=== PATIENT | male | born 1985 | race Two or more races ===

== ENCOUNTER 2020-10-25 16:48 | Inpatient (IN) | payer OTHER ==
[~2020-10-25] VITALS: Ht 167.6 cm; Wt 85.1 kg
[2020-10-25] VITALS (7 sets, daily range): BP systolic 144–154; BP diastolic 82–101
--- NOTE | 2020-10-25 17:00 | NUR ---
sandie for intermitient nose bleed x6 days. was seen at [facility] for same 2 days ago. no nose bleed observed currently. pt postioned in chair to comfort. attached to monitors. vss. barrios.
[2020-10-25] MEDS ORDERED: SILVER NITRATE STICK TP ONE (17:35)
--- NOTE | 2020-10-25 18:19 | NUR ---
REPORT FROM TRUNG DEL VALLE
--- NOTE | 2020-10-25 18:32 | NUR ---
task RN: pt moved from room 20 to room 17. pt on charlie. bus monitor in place. IV started x2 and labs drawn. pt positioning for comfort. pt declines warm blankets at this time
[2020-10-25 18:44] LABS: BASOPHILS % (AUTO) 1 % (0-1); EOSINOPHILS % (AUTO) 1 % (1-7); LYMPHOCYTES % (AUTO) 12 % (22-44); MEAN CORPUSCULAR HGB CONC 35.2 g/dL (33.2-36.2); MEAN PLATELET VOLUME 7.3 fL (7.4-10.4); MONOCYTES % (AUTO) 6 % (2-9); NEUTROPHILS % (AUTO) 81 % (42-75); PLATELET COUNT 327 x10^3/uL (130-400); RED BLOOD COUNT 1.34 x10^6/uL (4.38-5.82)
--- NOTE | 2020-10-25 18:45 | NUR ---
Received report from IVON Alarcon
[2020-10-25 19:05] LABS: INTERNATIONAL NORMALIZED RATIO 1.02 (0.93-1.1); PROTHROMBIN TIME 10.9 Seconds (9.6-11.5)
[2020-10-25 19:27] LABS: <PLATELET ESTIMATE> ADEQUATE; <PLT MORPHOLOGY> NORMAL PLT MORPH; ANISOCYTOSIS 1+; POLYCHROMASIA 1+
[2020-10-25 19:37] LABS: ALANINE AMINOTRANSFERASE 13 U/L (12-78); ALBUMIN 2.5 g/dL (3.4-5.0); ANION GAP 15 mmol/L (5-15); CALCIUM 8.2 mg/dL (8.5-10.1); CHLORIDE 103 mmol/L (98-107)
[2020-10-25 19:39] LABS: ALKALINE PHOSPHATASE 33 U/L (45-117); BILIRUBIN,TOTAL 0.2 mg/dL (0.2-1.0); TOTAL PROTEIN 6.1 g/dL (6.4-8.2)
--- NOTE | 2020-10-25 19:58 | NUR ---
pt started on blood
[2020-10-25 20:54] LABS: MICROSCOPIC INDICATED
--- NOTE | 2020-10-25 21:42 | NUR ---
Pt to be admitted to [facility], room 490-2. Report called to IVON Madera.
--- NOTE | 2020-10-25 21:42 | NUR ---
2nd unit of blood started, hospitalist at bedside
[2020-10-25] MEDS ORDERED: ASPI1TAB31 PO (23:10)
[2020-10-26] VITALS (7 sets, daily range): BP systolic 141–163; BP diastolic 85–113
[2020-10-26] MEDS ORDERED: BISACODYL 10 MG SUPP PR PRN (02:00)
[2020-10-26 09:27] LABS: BASOPHILS % (AUTO) 1 % (0-1); EOSINOPHILS % (AUTO) 2 % (1-7); LYMPHOCYTES % (AUTO) 20 % (22-44); MEAN CORPUSCULAR HEMOGLOBIN 30.1 pg (27.5-34.5); MEAN CORPUSCULAR HGB CONC 35.6 g/dL (33.2-36.2); MEAN PLATELET VOLUME 6.8 fL (7.4-10.4); MONOCYTES % (AUTO) 9 % (2-9); NEUTROPHILS % (AUTO) 69 % (42-75); PLATELET COUNT 240 x10^3/uL (130-400); RED BLOOD COUNT 2.76 x10^6/uL (4.38-5.82); RED CELL DISTRIBUTION WIDTH 14.4 % (9.4-14.8)
[2020-10-26 09:41] LABS: ALBUMIN 2.3 g/dL (3.4-5.0); ANION GAP 15 mmol/L (5-15); CALCIUM 7.8 mg/dL (8.5-10.1); CHLORIDE 107 mmol/L (98-107)
[2020-10-26 09:42] LABS: CREATININE 9.99 mg/dL (0.7-1.3)
[2020-10-26] MEDS: LACTATED RINGERS 1,000 ML IV SCH ×2 (12:45→19:50)
[2020-10-26] MEDS: POTASSIUM CHLORIDE 20 MEQ PACKET PO SCH ×2 (15:11→21:53)
[2020-10-26] MEDS ORDERED: POTASSIUM CHLORIDE 20 MEQ PACKET PO SCH (17:00)
[2020-10-27] VITALS (10 sets, daily range): BP systolic 143–169; BP diastolic 85–120
[2020-10-27 01:52] LABS: INTERNATIONAL NORMALIZED RATIO 0.97 (0.93-1.1); PROTHROMBIN TIME 10.4 Seconds (9.6-11.5)
[2020-10-27] MEDS: LACTATED RINGERS 1,000 ML IV SCH ×3 (06:15→22:51)
[2020-10-27] MEDS: POTASSIUM CHLORIDE 20 MEQ PACKET PO SCH ×2 (08:51→17:17)
[2020-10-27 09:25] LABS: BASOPHILS % (AUTO) 1 % (0-1); EOSINOPHILS % (AUTO) 4 % (1-7); LYMPHOCYTES % (AUTO) 23 % (22-44); MEAN CORPUSCULAR HEMOGLOBIN 30.5 pg (27.5-34.5); MEAN CORPUSCULAR HGB CONC 35.7 g/dL (33.2-36.2); MONOCYTES % (AUTO) 9 % (2-9); NEUTROPHILS % (AUTO) 64 % (42-75); PLATELET COUNT 219 x10^3/uL (130-400); RED BLOOD COUNT 2.69 x10^6/uL (4.38-5.82); RED CELL DISTRIBUTION WIDTH 14.7 % (9.4-14.8)
[2020-10-27 09:32] LABS: ANION GAP 9 mmol/L (5-15); CALCIUM 7.6 mg/dL (8.5-10.1); CHLORIDE 109 mmol/L (98-107); INTERNATIONAL NORMALIZED RATIO 0.98 (0.93-1.1); PROTHROMBIN TIME 10.5 Seconds (9.6-11.5)
[2020-10-27 09:35] LABS: CREATININE 8.15 mg/dL (0.7-1.3)
[2020-10-27] MEDS ORDERED: AMLODIPINE 2.5 MG TABLET ONE (12:24)
[2020-10-27] MEDS: AMLODIPINE 2.5 MG TABLET PO SCH (12:27)
[2020-10-27] MEDS: hydrALAzine 20 MG/ML, 1ML IV PRN (21:11)
[2020-10-28] VITALS (7 sets, daily range): BP systolic 147–168; BP diastolic 90–118
[2020-10-28 06:26] LABS: BASOPHILS % (AUTO) 1 % (0-1); EOSINOPHILS % (AUTO) 3 % (1-7); LYMPHOCYTES % (AUTO) 22 % (22-44); MEAN CORPUSCULAR HEMOGLOBIN 30.6 pg (27.5-34.5); MEAN CORPUSCULAR HGB CONC 35.3 g/dL (33.2-36.2); MEAN PLATELET VOLUME 7.2 fL (7.4-10.4); MONOCYTES % (AUTO) 9 % (2-9); NEUTROPHILS % (AUTO) 66 % (42-75); PLATELET COUNT 229 x10^3/uL (130-400); RED BLOOD COUNT 2.82 x10^6/uL (4.38-5.82); RED CELL DISTRIBUTION WIDTH 14.5 % (9.4-14.8)
[2020-10-28] MEDS: ACETAMINOPHEN 325 MG TABLET PO PRN ×2 (06:27→17:07)
[2020-10-28 06:37] LABS: ANION GAP 9 mmol/L (5-15); CHLORIDE 109 mmol/L (98-107)
[2020-10-28 06:39] LABS: CREATININE 7.26 mg/dL (0.7-1.3)
[2020-10-28] MEDS: hydrALAzine 20 MG/ML, 1ML IV PRN ×2 (06:56→14:37)
[2020-10-28] MEDS: AMLODIPINE 2.5 MG TABLET PO SCH ×2 (07:51→17:51)
[2020-10-28] MEDS: POTASSIUM CHLORIDE 20 MEQ PACKET PO SCH ×2 (07:51→17:07)
[2020-10-28] MEDS: LACTATED RINGERS 1,000 ML IV SCH (07:51)
[2020-10-28] MEDS: CHOLECALCIFEROL 5,000u TAB PO SCH (09:42)
[2020-10-28] MEDS: MULTIVITS,STRESS FORMULA 1 TABLET PO SCH (09:42)
[2020-10-28] MEDS: ZINC SULFATE 220 MG CAPSULE PO SCH (09:42)
[2020-10-28] MEDS: IRON SUCROSE COMPLEX 100MG/5ML IV SCH (17:07)
[2020-10-28] MEDS: ASCORBIC ACID 500 MG TABLET PO SCH (17:07)
[2020-10-28] MEDS ORDERED: AMLODIPINE 2.5 MG TABLET ONE (17:49)
[2020-10-28 18:21] LABS: MICROSCOPIC AUTO
[2020-10-29 01:44] VITALS: BP 153/95
[2020-10-29 06:06] LABS: BASOPHILS % (AUTO) 1 % (0-1); EOSINOPHILS % (AUTO) 3 % (1-7); LYMPHOCYTES % (AUTO) 26 % (22-44); MEAN CORPUSCULAR HEMOGLOBIN 30.7 pg (27.5-34.5); MEAN CORPUSCULAR HGB CONC 34.8 g/dL (33.2-36.2); MEAN PLATELET VOLUME 7.1 fL (7.4-10.4); MONOCYTES % (AUTO) 8 % (2-9); NEUTROPHILS % (AUTO) 62 % (42-75); PLATELET COUNT 249 x10^3/uL (130-400); RED CELL DISTRIBUTION WIDTH 14.4 % (9.4-14.8)
[2020-10-29 06:12] LABS: ALBUMIN 2.6 g/dL (3.4-5.0); ANION GAP 9 mmol/L (5-15); CALCIUM 8.3 mg/dL (8.5-10.1); CHLORIDE 108 mmol/L (98-107)
[2020-10-29 06:13] LABS: CREATININE 7.08 mg/dL (0.7-1.3)
[2020-10-29 08:45] VITALS: BP 164/109
[2020-10-29] MEDS: AMLODIPINE 2.5 MG TABLET PO SCH (08:47)
[2020-10-29] MEDS: ASCORBIC ACID 500 MG TABLET PO SCH ×2 (08:47→17:01)
[2020-10-29] MEDS: CHOLECALCIFEROL 5,000u TAB PO SCH (08:47)
[2020-10-29] MEDS: MULTIVITS,STRESS FORMULA 1 TABLET PO SCH (08:47)
[2020-10-29] MEDS: POTASSIUM CHLORIDE 20 MEQ PACKET PO SCH ×2 (08:48→17:01)
[2020-10-29] MEDS: IRON SUCROSE COMPLEX 100MG/5ML IV SCH (08:48)
[2020-10-29] MEDS: ZINC SULFATE 220 MG CAPSULE PO SCH (08:48)
[2020-10-29] MEDS ORDERED: AMLODIPINE 10 MG TAB PO SCH (09:00)
[2020-10-29] MEDS ORDERED: AMLODIPINE 5 MG TABLET PO ONE (09:30)
[2020-10-29 11:25] VITALS: BP 151/102
[2020-10-29] MEDS ORDERED: LACTATED RINGERS 1,000 ML IV SCH (12:30)
[2020-10-29] MEDS: ACETAMINOPHEN 325 MG TABLET PO PRN (14:16)
[2020-10-29 14:55] VITALS: BP 159/99
[2020-10-29 18:45] VITALS: BP 155/99
[2020-10-30] VITALS (7 sets, daily range): BP systolic 137–151; BP diastolic 87–94
[2020-10-30] MEDS: ZINC SULFATE 220 MG CAPSULE PO SCH (07:36)
[2020-10-30] MEDS: IRON SUCROSE COMPLEX 100MG/5ML IV SCH (07:36)
[2020-10-30] MEDS: CHOLECALCIFEROL 5,000u TAB PO SCH (07:37)
[2020-10-30] MEDS: ASCORBIC ACID 500 MG TABLET PO SCH ×2 (07:37→17:26)
[2020-10-30] MEDS: AMLODIPINE 5 MG TABLET PO SCH (07:37)
[2020-10-30] MEDS: MULTIVITS,STRESS FORMULA 1 TABLET PO SCH (07:37)
[2020-10-30] MEDS: POTASSIUM CHLORIDE 20 MEQ PACKET PO SCH ×2 (07:38→17:26)
[2020-10-30] MEDS ORDERED: AMLODIPINE 10 MG TAB PO SCH (09:00)
[2020-10-30] MEDS ORDERED: LABETALOL 5MG/ML, 20ML ONE (10:14)
[2020-10-30] MEDS ORDERED: LABETALOL 5MG/ML, 20ML IVPush ONE ×2 (10:30→15:00)
[2020-10-30] MEDS ORDERED: NALOXONE 1 MG/ML, 2ML ONE (10:35)
[2020-10-30] MEDS ORDERED: FLUMAZENIL 0.1 MG/1 ML, 5ML ONE (10:35)
[2020-10-30] MEDS ORDERED: MIDAZOLAM 1 MG/ML, 5ML ONE (10:35)
[2020-10-30] MEDS ORDERED: FENTANYL PF 100 MCG/2ML ONE (10:35)
[2020-10-30] MEDS ORDERED: CARVEDILOL 3.125 MG TABLET ONE (11:44)
[2020-10-30] MEDS ORDERED: CARVEDILOL 3.125 MG TABLET PO SCH (12:00)
[2020-10-30 12:52] LABS: BASOPHILS % (AUTO) 1 % (0-1); EOSINOPHILS % (AUTO) 3 % (1-7); LYMPHOCYTES % (AUTO) 16 % (22-44); MEAN CORPUSCULAR HEMOGLOBIN 30.9 pg (27.5-34.5); MEAN CORPUSCULAR HGB CONC 34.9 g/dL (33.2-36.2); MEAN PLATELET VOLUME 6.5 fL (7.4-10.4); MONOCYTES % (AUTO) 8 % (2-9); NEUTROPHILS % (AUTO) 72 % (42-75); PLATELET COUNT 226 x10^3/uL (130-400); RED BLOOD COUNT 2.81 x10^6/uL (4.38-5.82); RED CELL DISTRIBUTION WIDTH 14.7 % (9.4-14.8)
[2020-10-30 13:00] LABS: ALBUMIN 2.5 g/dL (3.4-5.0); ANION GAP 9 mmol/L (5-15); CALCIUM 7.8 mg/dL (8.5-10.1); CHLORIDE 106 mmol/L (98-107); CREATININE 6.82 mg/dL (0.7-1.3)
[2020-10-30] MEDS ORDERED: LABETALOL 5MG/ML, 20ML IVPush PRN (15:00)
[2020-10-30] MEDS: CARVEDILOL 6.25 MG TABLET PO SCH (17:26)
[2020-10-31 05:43] VITALS: BP 126/83
[2020-10-31] MEDS: CARVEDILOL 6.25 MG TABLET PO SCH ×2 (05:51→16:32)
[2020-10-31 06:37] LABS: ALBUMIN 2.5 g/dL (3.4-5.0); ANION GAP 10 mmol/L (5-15); CALCIUM 7.7 mg/dL (8.5-10.1); CHLORIDE 105 mmol/L (98-107)
[2020-10-31 07:11] VITALS: BP 131/85
[2020-10-31] MEDS: MULTIVITS,STRESS FORMULA 1 TABLET PO SCH (08:03)
[2020-10-31] MEDS: CHOLECALCIFEROL 5,000u TAB PO SCH (08:03)
[2020-10-31] MEDS: ASCORBIC ACID 500 MG TABLET PO SCH ×2 (08:03→16:32)
[2020-10-31] MEDS: AMLODIPINE 5 MG TABLET PO SCH (08:03)
[2020-10-31] MEDS: ZINC SULFATE 220 MG CAPSULE PO SCH (08:04)
[2020-10-31] MEDS: IRON SUCROSE COMPLEX 100MG/5ML IV SCH (08:04)
[2020-10-31] MEDS: POTASSIUM CHLORIDE 20 MEQ PACKET PO SCH ×2 (08:04→16:32)
[2020-10-31] MEDS ORDERED: NALOXONE 1 MG/ML, 2ML ONE (13:51)
[2020-10-31] MEDS ORDERED: FLUMAZENIL 0.1 MG/1 ML, 5ML ONE (13:51)
[2020-10-31] MEDS ORDERED: MIDAZOLAM 1 MG/ML, 5ML ONE (13:51)
[2020-10-31] MEDS ORDERED: FENTANYL PF 100 MCG/2ML ONE (13:51)
[2020-10-31] MEDS ORDERED: LIDOCAINE 1%, 20ML ONE (13:52)
[2020-10-31 13:54] VITALS: BP 136/86
[2020-10-31] MEDS ORDERED: LIDOCAINE 1%, 10ML ONE (13:54)
[2020-10-31 16:23] VITALS: BP 122/66
[2020-10-31 20:00] VITALS: BP 124/79
[2020-11-01 01:27] VITALS: BP 104/68
[2020-11-01] MEDS: CARVEDILOL 6.25 MG TABLET PO SCH ×2 (06:12→18:07)
[2020-11-01 07:28] VITALS: BP 116/72
[2020-11-01] MEDS: POTASSIUM CHLORIDE 20 MEQ PACKET PO SCH ×2 (09:01→16:37)
[2020-11-01] MEDS: CHOLECALCIFEROL 5,000u TAB PO SCH (09:02)
[2020-11-01] MEDS: AMLODIPINE 5 MG TABLET PO SCH (09:02)
[2020-11-01] MEDS: MULTIVITS,STRESS FORMULA 1 TABLET PO SCH (09:02)
[2020-11-01] MEDS: IRON SUCROSE COMPLEX 100MG/5ML IV SCH (09:02)
[2020-11-01] MEDS: ZINC SULFATE 220 MG CAPSULE PO SCH (09:02)
[2020-11-01] MEDS: ASCORBIC ACID 500 MG TABLET PO SCH ×2 (09:02→16:36)
[2020-11-01 09:23] LABS: BASOPHILS % (AUTO) 1 % (0-1); EOSINOPHILS % (AUTO) 3 % (1-7); LYMPHOCYTES % (AUTO) 15 % (22-44); MEAN CORPUSCULAR HEMOGLOBIN 30.8 pg (27.5-34.5); MEAN CORPUSCULAR HGB CONC 34.2 g/dL (33.2-36.2); MONOCYTES % (AUTO) 7 % (2-9); NEUTROPHILS % (AUTO) 74 % (42-75); PLATELET COUNT 266 x10^3/uL (130-400); RED BLOOD COUNT 2.81 x10^6/uL (4.38-5.82); RED CELL DISTRIBUTION WIDTH 14.6 % (9.4-14.8)
[2020-11-01 09:28] LABS: ALBUMIN 2.9 g/dL (3.4-5.0); ANION GAP 12 mmol/L (5-15); CALCIUM 8.2 mg/dL (8.5-10.1); CHLORIDE 105 mmol/L (98-107)
[2020-11-01 09:29] LABS: CREATININE 7.47 mg/dL (0.7-1.3)
[2020-11-01] MEDS ORDERED: AMLO-150 PO ×2 (12:00)
[2020-11-01] MEDS ORDERED: CARV6.2512 PO ×2 (12:00)
[2020-11-01 13:41] VITALS: BP 116/76
[2020-11-01 20:15] VITALS: BP 120/79
[2020-11-02 02:00] VITALS: BP 124/81
[2020-11-02 05:17] LABS: CHLORIDE 105 mmol/L (98-107)
[2020-11-02 05:23] LABS: ALBUMIN 2.3 g/dL (3.4-5.0); ANION GAP 11 mmol/L (5-15); CALCIUM 7.9 mg/dL (8.5-10.1); CREATININE 7.21 mg/dL (0.7-1.3)
[2020-11-02] MEDS: CARVEDILOL 6.25 MG TABLET PO SCH ×2 (06:33→17:32)
[2020-11-02 09:25] VITALS: BP 117/72
[2020-11-02] MEDS: AMLODIPINE 5 MG TABLET PO SCH (09:27)
[2020-11-02] MEDS: ZINC SULFATE 220 MG CAPSULE PO SCH (09:27)
[2020-11-02] MEDS: MULTIVITS,STRESS FORMULA 1 TABLET PO SCH (09:28)
[2020-11-02] MEDS: POTASSIUM CHLORIDE 20 MEQ PACKET PO SCH (09:28)
[2020-11-02] MEDS: CHOLECALCIFEROL 5,000u TAB PO SCH (09:28)
[2020-11-02] MEDS: IRON SUCROSE COMPLEX 100MG/5ML IV SCH (09:28)
[2020-11-02] MEDS: ASCORBIC ACID 500 MG TABLET PO SCH ×2 (09:28→16:13)
[2020-11-02] MEDS ORDERED: DARBEPOETIN 100 MCG/ML SQ SCH (13:00)
[2020-11-02 15:34] VITALS: BP 134/87
[2020-11-02 19:34] VITALS: BP 132/83
[2020-11-02] MEDS: LOSARTAN 50MG TABLET PO SCH (20:47)
[2020-11-03 00:34] VITALS: BP 135/85
[2020-11-03] MEDS: CARVEDILOL 6.25 MG TABLET PO SCH ×2 (06:27→17:37)
[2020-11-03 08:00] VITALS: BP 122/74
[2020-11-03] MEDS ORDERED: FENTANYL PF 100 MCG/2ML ONE (08:00)
[2020-11-03] MEDS ORDERED: MIDAZOLAM 1 MG/ML, 5ML ONE (08:00)
[2020-11-03] MEDS ORDERED: NALOXONE 1 MG/ML, 2ML ONE (08:01)
[2020-11-03] MEDS ORDERED: FLUMAZENIL 0.1 MG/1 ML, 5ML ONE (08:01)
[2020-11-03] MEDS ORDERED: LIDOCAINE 1%, 20ML ONE (08:23)
[2020-11-03] MEDS ORDERED: VANCOMYCIN 1,300 MG in SODIUM CHLORIDE 0.9% 250 ML IVPB ONE (08:28)
[2020-11-03] MEDS: MULTIVITS,STRESS FORMULA 1 TABLET PO SCH (10:06)
[2020-11-03] MEDS: ZINC SULFATE 220 MG CAPSULE PO SCH (10:06)
[2020-11-03] MEDS: AMLODIPINE 5 MG TABLET PO SCH (10:06)
[2020-11-03] MEDS: LOSARTAN 50MG TABLET PO SCH ×2 (10:07→21:18)
[2020-11-03] MEDS: CHOLECALCIFEROL 5,000u TAB PO SCH (10:07)
[2020-11-03] MEDS: ASCORBIC ACID 500 MG TABLET PO SCH ×2 (10:15→17:36)
[2020-11-03 11:00] VITALS: BP 127/84
[2020-11-03 11:34] LABS: BASOPHILS % (AUTO) 1 % (0-1); EOSINOPHILS % (AUTO) 2 % (1-7); LYMPHOCYTES % (AUTO) 17 % (22-44); MEAN CORPUSCULAR HEMOGLOBIN 30.8 pg (27.5-34.5); MEAN CORPUSCULAR HGB CONC 34.4 g/dL (33.2-36.2); MEAN PLATELET VOLUME 7.1 fL (7.4-10.4); MONOCYTES % (AUTO) 10 % (2-9); NEUTROPHILS % (AUTO) 71 % (42-75); PLATELET COUNT 244 x10^3/uL (130-400); RED BLOOD COUNT 2.55 x10^6/uL (4.38-5.82); RED CELL DISTRIBUTION WIDTH 14.6 % (9.4-14.8)
[2020-11-03 11:43] LABS: ALBUMIN 2.6 g/dL (3.4-5.0); ANION GAP 9 mmol/L (5-15); CALCIUM 7.8 mg/dL (8.5-10.1); CHLORIDE 103 mmol/L (98-107)
[2020-11-03 14:55] VITALS: BP 134/85
[2020-11-03 20:31] VITALS: BP 138/86
[2020-11-04 00:53] VITALS: BP 141/81
[2020-11-04 05:41] VITALS: BP 146/85
[2020-11-04] MEDS: CARVEDILOL 6.25 MG TABLET PO SCH ×2 (05:43→17:01)
[2020-11-04 07:46] VITALS: BP 112/68
[2020-11-04] MEDS: ZINC SULFATE 220 MG CAPSULE PO SCH (08:16)
[2020-11-04] MEDS: AMLODIPINE 5 MG TABLET PO SCH (08:16)
[2020-11-04] MEDS: LOSARTAN 50MG TABLET PO SCH ×2 (08:17→21:00)
[2020-11-04] MEDS: MULTIVITS,STRESS FORMULA 1 TABLET PO SCH (08:17)
[2020-11-04] MEDS: ASCORBIC ACID 500 MG TABLET PO SCH ×2 (08:17→17:00)
[2020-11-04] MEDS: CHOLECALCIFEROL 5,000u TAB PO SCH (08:17)
[2020-11-04 08:29] LABS: BASOPHILS % (AUTO) 1 % (0-1); EOSINOPHILS % (AUTO) 2 % (1-7); LYMPHOCYTES % (AUTO) 18 % (22-44); MEAN CORPUSCULAR HEMOGLOBIN 31.1 pg (27.5-34.5); MEAN CORPUSCULAR HGB CONC 34.7 g/dL (33.2-36.2); MEAN PLATELET VOLUME 7.1 fL (7.4-10.4); MONOCYTES % (AUTO) 13 % (2-9); NEUTROPHILS % (AUTO) 66 % (42-75); PLATELET COUNT 251 x10^3/uL (130-400); RED BLOOD COUNT 2.38 x10^6/uL (4.38-5.82); RED CELL DISTRIBUTION WIDTH 14.7 % (9.4-14.8)
[2020-11-04 08:33] LABS: ALBUMIN 2.5 g/dL (3.4-5.0); ANION GAP 10 mmol/L (5-15); CALCIUM 8.2 mg/dL (8.5-10.1); CHLORIDE 104 mmol/L (98-107); CREATININE 6.36 mg/dL (0.7-1.3)
[2020-11-04 08:43] LABS: FREE T4 (FREE THYROXINE) 1.11 ng/dL (0.76-1.46)
[2020-11-04 12:59] VITALS: BP 138/86
[2020-11-04] MEDS: SEVELAMER CARBONATE 800MG TAB PO SCH ×2 (13:30→17:00)
[2020-11-04 22:55] VITALS: BP 120/72
[2020-11-05 04:02] LABS: BASOPHILS % (AUTO) 1 % (0-1); EOSINOPHILS % (AUTO) 2 % (1-7); LYMPHOCYTES % (AUTO) 24 % (22-44); MEAN CORPUSCULAR HEMOGLOBIN 30.5 pg (27.5-34.5); MEAN PLATELET VOLUME 6.9 fL (7.4-10.4); MONOCYTES % (AUTO) 13 % (2-9); NEUTROPHILS % (AUTO) 59 % (42-75); PLATELET COUNT 295 x10^3/uL (130-400); RED BLOOD COUNT 2.76 x10^6/uL (4.38-5.82); RED CELL DISTRIBUTION WIDTH 14.3 % (9.4-14.8)
[2020-11-05 04:15] LABS: ALBUMIN 2.6 g/dL (3.4-5.0); CHLORIDE 98 mmol/L (98-107)
[2020-11-05 04:18] LABS: ANION GAP 9 mmol/L (5-15); CALCIUM 8.7 mg/dL (8.5-10.1); CREATININE 5.15 mg/dL (0.7-1.3)
[2020-11-05] MEDS: CARVEDILOL 6.25 MG TABLET PO SCH ×2 (06:00→17:06)
[2020-11-05 06:07] VITALS: BP 134/78
[2020-11-05 07:13] VITALS: BP 125/80
[2020-11-05] MEDS: CHOLECALCIFEROL 5,000u TAB PO SCH (08:40)
[2020-11-05] MEDS: SEVELAMER CARBONATE 800MG TAB PO SCH ×3 (08:40→17:06)
[2020-11-05] MEDS: MULTIVITS,STRESS FORMULA 1 TABLET PO SCH (08:40)
[2020-11-05] MEDS: ASCORBIC ACID 500 MG TABLET PO SCH ×2 (08:40→17:05)
[2020-11-05] MEDS: ZINC SULFATE 220 MG CAPSULE PO SCH (08:40)
[2020-11-05] MEDS: AMLODIPINE 5 MG TABLET PO SCH (08:40)
[2020-11-05] MEDS: LOSARTAN 50MG TABLET PO SCH ×2 (08:41→21:18)
[2020-11-05 13:03] VITALS: BP 135/85
[2020-11-05 18:28] VITALS: BP_SYST 122; BP_SYST 132; BP_DIAS 84; BP_DIAS 88
[2020-11-05 21:07] VITALS: BP 146/95
[2020-11-06 01:51] VITALS: BP 116/72
[2020-11-06 05:22] VITALS: BP 129/77
[2020-11-06] MEDS: CARVEDILOL 6.25 MG TABLET PO SCH ×2 (05:23→18:07)
[2020-11-06 07:28] LABS: BASOPHILS % (AUTO) 1 % (0-1); EOSINOPHILS % (AUTO) 3 % (1-7); LYMPHOCYTES % (AUTO) 18 % (22-44); MEAN CORPUSCULAR HEMOGLOBIN 30.6 pg (27.5-34.5); MEAN CORPUSCULAR HGB CONC 34.6 g/dL (33.2-36.2); MEAN PLATELET VOLUME 6.7 fL (7.4-10.4); MONOCYTES % (AUTO) 15 % (2-9); NEUTROPHILS % (AUTO) 63 % (42-75); PLATELET COUNT 291 x10^3/uL (130-400); RED BLOOD COUNT 2.62 x10^6/uL (4.38-5.82); RED CELL DISTRIBUTION WIDTH 14.2 % (9.4-14.8)
[2020-11-06 07:37] LABS: ALBUMIN 2.6 g/dL (3.4-5.0); ANION GAP 11 mmol/L (5-15); CALCIUM 8.6 mg/dL (8.5-10.1); CHLORIDE 98 mmol/L (98-107); CREATININE 7.02 mg/dL (0.7-1.3)
[2020-11-06 08:11] VITALS: BP 116/77
[2020-11-06] MEDS: CHOLECALCIFEROL 5,000u TAB PO SCH (08:49)
[2020-11-06] MEDS: SEVELAMER CARBONATE 800MG TAB PO SCH ×3 (08:49→16:40)
[2020-11-06] MEDS: AMLODIPINE 5 MG TABLET PO SCH (08:49)
[2020-11-06] MEDS: ZINC SULFATE 220 MG CAPSULE PO SCH (08:49)
[2020-11-06] MEDS: LOSARTAN 50MG TABLET PO SCH ×2 (08:49→22:02)
[2020-11-06] MEDS: MULTIVITS,STRESS FORMULA 1 TABLET PO SCH (08:49)
[2020-11-06] MEDS: ASCORBIC ACID 500 MG TABLET PO SCH ×2 (08:49→16:40)
[2020-11-06 14:35] VITALS: BP 135/88
[2020-11-06 19:29] VITALS: BP 132/84
[2020-11-06 22:02] VITALS: BP 138/85
[2020-11-07 02:53] VITALS: BP 131/74
[2020-11-07 05:58] VITALS: BP 130/78
[2020-11-07] MEDS: CARVEDILOL 6.25 MG TABLET PO SCH (06:00)
[2020-11-07 06:49] LABS: ALBUMIN 2.4 g/dL (3.4-5.0); ANION GAP 11 mmol/L (5-15); CALCIUM 8.9 mg/dL (8.5-10.1); CHLORIDE 99 mmol/L (98-107); CREATININE 7.68 mg/dL (0.7-1.3)
[2020-11-07 07:52] VITALS: BP 124/75
[2020-11-07] MEDS: SEVELAMER CARBONATE 800MG TAB PO SCH ×2 (08:00→11:36)
[2020-11-07] MEDS: ASCORBIC ACID 500 MG TABLET PO SCH (08:00)
[2020-11-07] MEDS: LOSARTAN 50MG TABLET PO SCH (08:47)
[2020-11-07] MEDS ORDERED: LOSA50TA2 PO (09:48)
[2020-11-07] MEDS ORDERED: SEVE800T8 PO (09:48)
[2020-11-07] MEDS ORDERED: CARV6.2512 PO (09:48)
[2020-11-07] MEDS ORDERED: CHOL500050 PO (09:48)
[2020-11-07] MEDS: CHOLECALCIFEROL 5,000u TAB PO SCH (11:36)
[2020-11-07] MEDS: AMLODIPINE 5 MG TABLET PO SCH (11:36)
[2020-11-07] MEDS: ZINC SULFATE 220 MG CAPSULE PO SCH (11:36)
[2020-11-07] MEDS: MULTIVITS,STRESS FORMULA 1 TABLET PO SCH (11:36)
== END 2020-11-07 12:00 | disposition home or self-care (01) | DRG 673 ==
LOC: ED 21:18 → EDIP 21:43 → 4EST 22:12
PROVIDERS: ADMIT Internal Medicine; ATTEND Family Medicine
PROC: 30233N1 Transfusion of Nonautologous Red Blood Cells into Peripheral Vein, Percutaneous Approach (ICD-10-PCS; 2020-10-25)
PROC: 0TB13ZX Excision of Left Kidney, Percutaneous Approach, Diagnostic (ICD-10-PCS; 2020-10-31)
PROC: 5A1D70Z Performance of Urinary Filtration, Intermittent, Less than 6 Hours Per Day (ICD-10-PCS; 2020-11-02)
PROC: 02HV33Z Insertion of Infusion Device into Superior Vena Cava, Percutaneous Approach (ICD-10-PCS; 2020-11-02)
PROC: B5181ZA Fluoroscopy of Superior Vena Cava using Low Osmolar Contrast, Guidance (ICD-10-PCS; 2020-11-02)
PROC: B548ZZA Ultrasonography of Superior Vena Cava, Guidance (ICD-10-PCS; 2020-11-02)
PROC: 0JH63XZ Insertion of Tunneled Vascular Access Device into Chest Subcutaneous Tissue and Fascia, Percutaneous Approach (ICD-10-PCS; principal; 2020-11-03)
PROC: 02H633Z Insertion of Infusion Device into Right Atrium, Percutaneous Approach (ICD-10-PCS; 2020-11-03)
PROC: B5181ZA Fluoroscopy of Superior Vena Cava using Low Osmolar Contrast, Guidance (ICD-10-PCS; 2020-11-03)
PROC: B548ZZA Ultrasonography of Superior Vena Cava, Guidance (ICD-10-PCS; 2020-11-03)
PROC: 5A1D70Z Performance of Urinary Filtration, Intermittent, Less than 6 Hours Per Day (ICD-10-PCS; 2020-11-04)
PROC: 5A1D70Z Performance of Urinary Filtration, Intermittent, Less than 6 Hours Per Day (ICD-10-PCS; 2020-11-07)
DX: I12.0 Hypertensive chronic kidney disease with stage 5 chronic kidney disease or end stage renal disease (principal); N18.6 End stage renal disease; N17.9 Acute kidney failure, unspecified; D62 Acute posthemorrhagic anemia; R04.0 Epistaxis; G43.909 Migraine, unspecified, not intractable, without status migrainosus; F12.90 Cannabis use, unspecified, uncomplicated; E87.6 Hypokalemia; D63.1 Anemia in chronic kidney disease; E66.9 Obesity, unspecified; I51.7 Cardiomegaly; E83.39 Other disorders of phosphorus metabolism; Z88.0 Allergy status to penicillin; Z87.891 Personal history of nicotine dependence; Z79.899 Other long term (current) drug therapy; Z68.30 Body mass index [BMI] 30.0-30.9, adult; Z82.49 Family history of ischemic heart disease and other diseases of the circulatory system
CPT/HCPCS: 36415; 99291; J3490; 36430; 36556; 36558; 50200; 71045; 76770; 76937; 77012; 80048; 80053; 80069; 80074; 81001; 82088; 82306; 82533; 82570; 82728; 83520; 83540; 83550; 83735; 83835; 83970; 84156; 84244; 84439; 84443; 85014; 85018; 85025; 85610; 86160; 86162; 86256; 86480; 86850; 86900; 86923; 88300; 88305; 88313; 88346; 88348; 88350; 90935; 93005; 99156; 99157; C1894; G0378; J0881; J1756; J2250; J3010; J3370; C1750; C1751; J0360; J1642; J2310; J7050; J7120; P9016